=== PATIENT | female | born 1965 | race Hispanic/Latino ===

== ENCOUNTER 2024-12-03 07:57 | Outpatient (CLI) | payer BC, SELFPAY ==
--- OUTSIDE RECORDS SUMMARY | 2024-12-03 08:02 | XMS_ITS | Clinical Summary ---
Author Organization [facility] Address [address] [place] [address] Care Team Providers Care Van Driver Name Role Phone Unavailable Primary Care Provider Unavailabl e Allergies Active Allergy Reactions Criticality Noted Date Comments Sulfa (Sulfonamide Antibiotics) Unknown Medium 05/2012 Medications HYDROcodone-aceta minophen (NORCO) 7.5-325 mg Oral Tab 1 Tab. 09/05/2012 Active Active Problems Problem Noted Date Diagnosed Date Ovarian cyst, right 05/04/2012 Social History Tobacco Use Types Packs/Day Years Used Date Smoking Tobacco: Never Assessed Comments Unknown Sex and Gender Information Value Date Recorded Sex Assigned at Not on file Legal Sex Female 11:37 AM CDT Gender Identity Not on file Sexual Orientation Not on file Last Filed Vital Signs Vital Sign Reading Time Taken Comments Blood Pressure 110/60 04/21/2012 11:39 AM CDT Pulse - - Temperature - - Respiratory Rate - - Oxygen Saturation - - Inhaled Oxygen Concentration - - Weight 83.9 kg (185 lb) 04/21/2012 11:39 AM CDT Height 165.1 cm (5' 5 ) 04/21/2012 11:39 AM CDT Body Mass Index 30.79 04/21/2012 11:39 AM CDT Plan of Treatment Health Maintenance Due Date Last Done Comments DTAP/TDAP/TD VACCINES (1 - Tdap) 1986 HEPATITIS B VACCINES (1 of 3 - 19+ 3-dose series) 1986 PAP SMEAR 1988 CERVICAL CANCER SCREENING 1997 HPV/Cotest (30-65) 1997 PAP SMEAR 1997 BREAST CANCER SCREENING 2007 COLORECTAL SCREENING 2012 Colorectal Cancer Screening 2012 FIT-DNA Q 3 years 2012 FIT/FOBT Q 1 year 2012 Flex Sig/CT Colonography Q 5 years 2012 ZOSTER VACCINE (1 of 2) 2017 INFLUENZA VACCINE (#1) 2024 PNEUMOCOCCAL VACCINE 0-49 YEARS Aged Out No longer eligible based on patient's age to complete this topic
--- OUTSIDE RECORDS SUMMARY | 2024-12-03 08:03 | XMS_ITS | Clinical Summary ---
Author Organization [facility] [address] [place] [id number] Care Team Providers Care Veterinary Radiologist Name Role Phone Prasanna Licea MD Primary Care Provider [phone] Allergies Active Allergy Reactions Criticality Noted Date Comments Sulfa (Sulfonamide Antibiotics) Unknown Medium 08/05/2012 Sulfasalazine Itching Low 05/15/2012 Medications atorvastatin (LIPITOR) 10 mg tablet Take 10 mg by mouth. Active escitalopram (LEXAPRO) 10 mg tablet Take 10 mg by mouth daily. 11 08/31/2018 Active ONETOUCH VERIO strip USE TO TEST BLOOD SUGAR EVERY DAY 5 08/07/2018 Active cyclobenzaprine (FLEXERIL) 10 mg tablet take 1 tablet (10MG) by oral route every bedtime prn 12/08/2011 Active LORazepam (ATIVAN) 0.5 mg tablet Take by mouth 2 (two) times a day as needed. 3 10/09/2018 Active metFORMIN (GLUCOPHAGE) 500 mg tablet TAKE 1 TABLET BY ORAL ROUTE ONCE DAILY WITH LARGEST MEAL. 3 08/07/2018 Active melatonin tablet Take 3 mg by mouth nightly as needed for sleep. Active venlafaxine XR (EFFEXOR-XR) 37.5 mg 24 hr capsule 05/04/2021 Active triazolam (HALCION) 0.25 mg tablet 04/17/2021 Active traZODone (DESYREL) 50 mg tablet 04/06/2021 Active BD Alie 2nd Gen Pen Needle 32 gauge x 5/32 needle 06/18/2021 Active Soliqua 100/33 100 unit-33 mcg/mL insulin pen 05/13/2021 Active BASAGLAR 100 unit/mL (3 mL) pen for injection 04/06/2021 Active HYDROcodone-arlen taminophen (NORCO) 7.5-325 mg per tablet 1 tablet 09/05/2012 Activ e lancets (Lancets,Ultra Thin) misc daily 04/06/2021 Active Active Problems Problem Noted Date Diagnosed Date Chronic right shoulder pain 06/21/2021 Controlled type 2 diabetes m ellitus with hyperglycemia, with long-term current use of insulin 06/21/2021 Insomnia 06/21/2021 FDC (current) use of insulin 06/21/2021 Fatty liver 06/21/2021 Vitamin D deficiency 06/21/2021 Encounter for immunization 06/21/2021 Body mass index (BMI) 28.0-28.9, adult 1 Diabetes mellitus 08/20/2017 Acne 07/25/2017 Allergic rhinitis 07/25/2017 Anxiety 07/25/2017 Hyperlipidemia 07/25/2017 Ovarian cyst, right 05/04/2012 Surgical History Surgery Date Site/Laterality Comments CO CHOLECYSTECTOMY Cholecystectomy - (Added by TW Conv) CO SUPRACERVICAL ABDL HYSTER W/WO RMVL TUBE OVARY Supracervical Hysterectomy - (Added by TW Conv) CO DELIVERY ONLY Section - (Added by TW Conv) BREAST BIOPSY Medical History Medical History Date Comments Anxiety disorder Anxiety - (Adde d by TW Conv) Personal history of other me ntal and behavioral disorders History of depression - (Add ed by TW Conv) Personal history of other en docrine, nutritional and metabolic disease History of diabetes mellitus - (Added by TW Conv) Family History Medical History Relation Name Comments Colon cancer Father Family history of colon cancer - (Added by TW Conv) Breast cancer Mother's Sister Breast cancer Other Family history of malignant neoplasm of breast - Relation: Aunt (Added by TW Conv) Relation Name Status Comments Father Mother's Sister Other Social History Tobacco Use Types Packs/Day Years Used Date Smoking Tobacco: Never Smokeless Tobacco: Never Alcohol Use Standard Drinks/Week Comments Yes 0 (1 standard drink = 0.6 oz pur e alcohol) social Comments No Sex and Gender Information Value Date Recorded Sex Assigned at Not on file Legal Sex Female 6:30 PM BLOWER ROOM ATTENDANT Gender Identity Not on file Sexual Orientation Not on file Obstetrics History Para Term AB IAB SAB Ectopic Multiple Livin g Live Births 2 2 2 Date Outcome GA Total Labor Labor/2nd/3rd Weight Sex Type Anes PTL Yoon A1 A5 Name Clin Term Term Last Filed Vital Signs Vital Sign Reading Time Taken Comments Blood Pressure 100/80 10/24/2018 3:17 PM BLOWER ROOM ATTENDANT Pulse 63 10/24/2018 3:17 PM BLOWER ROOM ATTENDANT Temperature - - Respiratory Rate 16 10/24/2018 3:17 PM BLOWER ROOM ATTENDANT Oxygen Saturation - - Inhaled Oxygen Concentration - - Weight 78.7 kg (173 lb 9.6 oz) 06/21/2021 8:03 A M CDT Height 167.6 cm (5' 6 ) 06/21/2021 8:03 AM CDT Body Mass Index 28.02 06/21/2021 8:03 AM CDT Plan of Treatment Health Maintenance Due Date Last Done Comments Albumin Creatinine Ratio, Urine 1967 Colon Cancer Screening-Colonoscopy 1967 Depression Screening 1967 Hemoglobin A1C 1967 Hepatitis C Screening 1967 eGFR 1967 Dilated Eye Exam 1967 Foot Exam 1967 Lipid Panel 1967 DTaP/Tdap/Td Vaccine (1 - Tdap) 1978 Hepatitis B Screening 1985 Regular Well Visit/Exam 18-64 1985 Pneumococcal vaccine <65 (1 of 2 - PCV) 1986 Breast Cancer Screening-Mammogram 12/02/2023 12/01/2022, 09/12/2021, 09/11/2019, Additional history exists Covid-19 Vaccine (3 - 2023-2 5 season) 2024 12/20/2020, 11/28/2020 Influenza Vaccine (#1) 2024 06/14/2021, 2019 Zoster Vaccine Completed 11/21/2021, 06/07/2021 Procedures Procedure Name Priority Date/Time Associated Diagnosis Comments SCREENING MAMMOGRAM BILATERAL W ESTEBAN Schedule Routine, Read Routine (OP Routine) 12/01/2022 9:27 AM CDT Screening mammogram, encounter for from Last 3 Months or Most Recently Relevant to Health Maintenance Results * Screening Mammogram Bilateral W Esteban (12/01/2022 9:27 AM CDT) Anatomical Region Laterality Modality Breast Bilateral Mammography 12/01/2022 9:44 AM CDT Impressions 12/01/2022 9:44 AM CDT No evidence of malignancy in either breast. FINAL ASSESSMENT: BI-RADS Category 1: Negative. RECOMMENDATION: Recommend return for annual screening mammogram in 12 months. Electronically signed by: Claire Monique M.D. Narrative 12/01/2022 9:44 AM CDT EXAMINATION: BILATERAL SCREENING MAMMOGRAM COMPARISON: Multiple prior studies, most recently 09/12/2021 and dating back to 08/22/2013. TECHNIQUE: Full-field 2D and digital breast tomosynthesis (DBT) images were obtained. CAD was utilized. BREAST PARENCHYMAL COMPOSITION: There are scattered areas of fibroglandular density. FINDINGS: There is no suspicious mass, calcification, or distortion in either breast. There has been no significant interval change from the prior study. us Self Screening Mammogram IMG MAMMO PROCEDURES Fi nal Result from Last 3 Months or Most Recently Relevant to Health Maintenance Insurance [facility] [id number] [place] [address] HEALTHCARE HMO HEALTHCARE O Care Teams Veterinary Radiologist Relationship Specialty Start Date End Date Prasanna Licea MD PCP - General 07/24/17
--- OUTSIDE RECORDS SUMMARY | 2024-12-03 08:03 | XMS_ITS | Referral Summary ---
Author Organization [facility] [address] [place] [id number] Care Team Providers Care Manager Coding Name Role Phone Prasanna Licea MD Primary Care Provider [phone] Allergies Active Allergy Reactions Criticality Noted Date [...] current use of insulin 06/21/2021 Insomnia 06/21/2021 MCC (current) use of insulin 06/21/2021 Fatty liver 06/21/2021 Vitamin D deficiency 06/21/2021 Encounter for immunization 06/21/2021 Body mass index (BMI) 28.0-28.9, adult Diabetes mellitus 08/20/2017 Acne 07/25/2017 Allergic rhinitis 07/25/2017 Anxiety 07/25/2017 Hyperlipidemia 07/25/2017 Ovarian cyst, right 05/04/2012 Social History Tobacco Use Types Packs/Day Years Used Date Smoking Tobacco: Never Smokeless Tobacco: Never Alcohol Use Standard Drinks/Week Comments Yes 0 (1 standard drink = 0.6 oz pur e alcohol) social Comments No Sex and Gender Information Value Date Recorded Sex Assigned at Not on file Legal Sex Female 6:30 PM RETENTION MANAGER Gender Identity Not on file Sexual Orientation Not on file Last Filed Vital Signs Vital Sign Reading Time Taken Comments Blood Pressure 100/80 10/24/2018 3:17 PM RETENTION MANAGER Pulse 63 10/24/2018 3:17 PM RETENTION MANAGER Temperature - - Respiratory Rate 16 10/24/2018 3:17 PM RETENTION MANAGER Oxygen Saturation - - Inhaled Oxygen Concentration - - Weight 78.7 kg (173 lb 9.6 oz) 06/21/2021 8:03 A M CDT Height 167.6 cm (5' 6 ) 06/21/2021 8:03 AM CDT Body Mass Index 28.02 06/21/2021 8:03 AM CDT Plan of Treatment Not on file Procedures Procedure Name Priority Date/Time Associated Diagnosis [...] Most Recently Relevant to Health Maintenance [facility] Care Teams Manager Coding Relationship Specialty Start Date End Date Prasanna Licea MD PCP - General 07/24/17
--- OUTSIDE RECORDS SUMMARY | 2024-12-03 08:03 | XMS_ITS | Clinical Summary ---
Author Organization [facility] Address [address] [facility] [place] [address] Care Team Providers Care Email Production Consultant Name Role Phone Prasanna Licea MD Primary Care Provider [phone] Source Comments [facility],non-owned Affiliates and Associated Physician Practices is amultiple site organization consisting of ambulatory clinics and hospital sitesin [place], [place], [place] and [place]. This disclosure is being madepursuant to the Care Everywhere program and may not contain all information available regarding this patient. Last updated 18.[facility] Say-Hey Allergies Active Allergy Reactions Criticality Noted Date Comments Sulfa Drugs Itching 05/15/2012 Medications * Be aware that medications may not be up to date on this document. Alwaysverify current medications with the patient. Medication Sig Dispensed Refills Start Date End Date Status LORazepam (ATIVAN) 0.5 MG tabletIndications:An xiety Take 0.5 mg by mouth every 8 hours as needed. Indications: Feeling Anxious Active atorvastatin (LIPITOR) 10 MG tablet Take 10 mg by mouth at bedtime. Active Melatonin 3 MG CAPSIndications:Inso mnia Take 1 Cap by mouth at bedtime. Indications: Trouble Sleeping Active oxycodone-acetaminop hen (PERCOCET) 5-325 MG tablet Take 1-2 Tabs by mouth every 4 hours as needed for Pain. 36 Tab 0 05/18/2012 Active Additional Information Patient not taking.Reported on 12/01/2016 ibuprofen (MOTRIN) 600 MG tablet Take 1 Tab by mouth 4 times daily. 80 Tab 0 05/18/2012 Active promethazine (PHENERGAN) 25 MG tablet Take 1 Tab by mouth every 6 hours as needed for Nausea/Vomiting. 24 Tab 0 05/18/2012 Active Additional Information Patient not taking.Reported on 12/01/2016 METFORMIN HCL ER, MOD, PO Active Social History Tobacco Use Types Packs/Day Years Used Date Smoking Tobacco: Never Smokeless Tobacco: Never Tobacco Cessation:Counseling Given: Yes Alcohol Use Standard Drinks/Week Comments Yes 0 (1 standard drink = 0.6 oz pur e alcohol) Sex and Gender Information Value Date Recorded Sex Assigned at Not on file Gender Identity Not on file Sexual Orientation Not on file Last Filed Vital Signs Vital Sign Reading Time Taken Comments Blood Pressure 110/74 12/01/2016 10:23 AM CDT Pulse 64 12/01/2016 10:23 AM CDT Temperature 37.1 C (98.7 F) 12/01/2016 10:23 AM CDT Respiratory Rate 16 12/01/2016 10:23 AM CDT Oxygen Saturation 98% 12/01/2016 10:23 AM CDT Inhaled Oxygen Concentration - - Weight 73.9 kg (163 lb) 12/01/2016 10:23 AM CDT Height 167.6 cm (5' 6 ) 12/01/2016 10:23 AM CDT Body Mass Index 26.31 12/01/2016 10:23 AM CDT Plan of Treatment Health Maintenance Due Date Last Done Comments COLOGUARD (AGES 45-75) - COL ON CA SCREENING 1967 COLON MONITORING 1967 COLONOSCOPY - COLON CA SCREENING 1967 CT COLONOGRAPHY - COLON CA SCREENING 1967 Colorectal Cancer Screening 1967 FIT - COLON CA SCREENING 1967 FLEX SIG - COLON CA SCREENING 1967 MAMMOGRAM 1967 PAP SMEAR 1967 HIV SCREENING 1982 HEPATITIS C SCREENING 03/07/1985 DTAP/TDAP/TD VACCINES (1 - Tdap) 1986 HEPATITIS B VACCINE (1 of 3 - 19+ 3-dose series) 1986 PNEUMOCOCCAL VACCINE 50+ (1 of 1 - PCV) 2017 ZOSTER VACCINE (1 of 2) 2017 COVID-19 VACCINE (2023-2 5 season) 2024 INFLUENZA VACCINE (#1) 2024 DEPRESSION SCREENING 09/03/2024 HIB VACCINE Aged Out No longer eligi ble based on patient's age to complete this topic HPV VACCINE Aged Out No longer eligi ble based on patient's age to complete this topic MENINGOCOCCAL (Group B) VACC INE SHARED DECISION-MAKING Aged Out No longer eligibl e based on patient's age to complete this topic MENINGOCOCCAL GROUPS A/C/Y/W VACCINE Aged Out No longer eligible b ased on patient's age to complete this topic PNEUMOCOCCAL VACCINE Aged Out No long er eligible based on patient's age to complete this topic Advance Directives * FULL RESUSCITATION (Latest Code Status on File) Date Activated Date Inactivated Comments 05/17/2012 2:35 PM 05/18/2012 5:21 PM Care Teams Email Production Consultant Relationship Specialty [place] [id number] [place] [id number] PCP - General 05/14/12
== END 2024-12-03 07:58 | disposition home or self-care (01) ==
LOC: ANHAUDIO 07:57
PROVIDERS: PCP Internal Medicine; Visit Provider Otolaryngology
DX: H93.13 Tinnitus, bilateral (principal); H90.42 Sensorineural hearing loss, unilateral, left ear, with unrestricted hearing on the contralateral side
CPT/HCPCS: 92557; 92567